=== PATIENT | female | born 1965 | race American Indian/Alaskan Native ===

== ENCOUNTER 2019-11-14 14:40 | Emergency (ER) | payer OTHER, MEDICAID ==
[2019-11-14 15:00] VITALS: BP 133/88
[2019-11-14] MEDS ORDERED: ACETAMINOPHEN 500 MG TAB PO ONE (17:05)
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
== END 2019-11-14 17:53 | disposition home or self-care (01) ==
LOC: ED 14:40
DX: S16.1XXA Strain of muscle, fascia and tendon at neck level, initial encounter (principal); S39.012A Strain of muscle, fascia and tendon of lower back, initial encounter; M62.830 Muscle spasm of back; V89.2XXA Person injured in unspecified motor-vehicle accident, traffic, initial encounter; Y93.89 Activity, other specified; Y92.410 Unspecified street and highway as the place of occurrence of the external cause; Y99.8 Other external cause status
CPT/HCPCS: 99283

== ENCOUNTER 2019-12-20 06:20 | Observation (INO) | payer OTHER, MEDICAID ==
[2019-12-18 11:09] LABS: Basophils # (Auto) 0.1 K/mm3 (0.0-0.1); Eosinophils # (Auto) 0.1 K/mm3 (0.0-0.4); Eosinophils % (Auto) 2.5 % (0.0-4.3); Hematocrit 38.2 % (30.3-42.9); Lymphocytes # (Auto) 2.3 K/mm3 (1.2-5.4); Lymphocytes % (Auto) 37.9 % (13.4-35.0); Mean Corpuscular HGB Conc 34 % (30-34); Mean Corpuscular Volume 90 fl (79-97); Monocytes # (Auto) 0.6 K/mm3 (0.0-0.8); Monocytes % (Auto) 9.4 % (0.0-7.3); Platelet Count 250 K/mm3 (140-440); Red Blood Count 4.23 M/mm3 (3.65-5.03); Red Cell Distribution Width 13.6 % (13.2-15.2)
--- NOTE | 2019-12-18 11:34 | Anesthesia Consultation ---
Anesthesia Consult and Med Hx Date of service: 12/20/19 - Airway Anesthetic Teeth Evaluation: Good ROM Head & Neck: Adequate Mental/Hyoid Distance: Adequate Mallampati Class: Class II Intubation Access Assessment: Probably Good - Pulmonary Exam CTA: Yes - Cardiac Exam Cardiac Exam: RRR - Pre-Operative Health Status ASA Pre-Surgery Classification: ASA2 Proposed Anesthetic Plan: General Nerve Block: TAP - Pulmonary Hx Smoking: Yes (Former) Hx Asthma: Yes (last inhaler use 10yrs ago) Hx Respiratory Symptoms: No - Cardiovascular System Hx Hypertension: Yes Hx Heart Attack/AMI: No Hx Percutaneous Transluminal Coronary Angioplasty (PTCA): No Hx Heart Murmur: Yes (neg cardiac work up) - Central Nervous System CVA: No - Gastrointestinal Hx Gastroesophageal Reflux Disease: Yes (poorly controlled) - Endocrine Hx Renal Disease: No Hx Liver Disease: No Hx Insulin Dependent Diabetes: No Hx Non-Insulin Dependent Diabetes: No Hx Hypothyroidism: Yes - Other Systems Hx Alcohol Use: Yes (double shot of liquor daily) Hx Substance Use: Yes (THC daily) Hx Obesity: No - Additional Comments Anesthesia Medical History Comments: No hx anesthetic complications. TTE 02/2019: EF 55-60%, mild pHTN w/ RSVP 30-35 mmHg.
[2019-12-18 13:38] LABS: BUN/Creatinine Ratio 18; Blood Urea Nitrogen 16 mg/dL (7-17); Calcium 9.3 mg/dL (8.4-10.2); Hemolysis Index 3
[~2019-12-20 06:20] MED LIST: ACETAMINOPHEN 500 MG TAB PO SCH; FAMOTIDINE 20 MG/2 ML INJ IV NR; GABAPENTIN 300 MG CAP PO NR; LACTATED RINGERS 1,000 ML IV SCH; MIDAZOLAM 2 MG/2 ML INJ IV NR; fentaNYL 100 MCG/2 ML INJ IV PRN
[2019-12-20] MEDS ORDERED: BACTERIOSTATIC SODIUM CHLORIDE 0.9% 30 ML VIAL INFILTRATI ONE (06:42)
[2019-12-20] MEDS ORDERED: BUPIVACAINE/PF (0.5%) 5 MG/1 ML 30 ML VIAL INFILTRATI ONE (07:00)
[2019-12-20] MEDS ORDERED: ceFAZolin/Water 2 GM/20 ML 2 GM/20 ML SYRINGE IV NR (07:00)
--- NOTE | 2019-12-20 07:00 | History and Physical Report ---
History of Present Illness Date of examination: 12/19/19 Date of admission: December 20, 2019 Chief complaint: Chronic pelvic pain History of present illness: 54-year-old -0-1-4 with a history of worsening chronic pelvic pain. The patient has attempted medical management without considerable improvement in her symptoms. She is elected to undergo definitive surgical management. Past History Past Medical History: hypertension Past Surgical History: other (tubal ligation) [employer]CH[employer] History: fibroids Social history: single - Obstetrical History : 5 Para: 4 Hx # Term Pregnancies: 4 Number of Pregnancies: 0 Spontaneous Abortions: 0 Induced : 1 Number of Living Children: 4 Medications and Allergies Allergies Allergy/AdvReac Type Severity Reaction Status Date / Time aspirin AdvReac Gastric Verified 12/12/19 16:58 upset morphine AdvReac Gastric Verified 12/12/19 16:58 upset NSAIDS (Non-Steroidal AdvReac GI bleed Verified 12/12/19 16:58 Anti-Inflamma tetracycline AdvReac Gastric Verified 12/12/19 16:58 upset Home Medications Medication Instructions Recorded Confirmed Last Taken Type Levothyroxine [Synthroid] 75 mcg PO QAM 12/12/19 12/12/19 Unknown History Losartan [Cozaar] 100 mg PO QDAY 12/12/19 12/12/19 Unknown History amLODIPine [Norvasc] 10 mg PO DAILY 12/12/19 12/12/19 Unknown History hydroCHLOROthiazide [HCTZ] 25 mg PO QDAY 12/12/19 12/12/19 Unknown History Active Meds: Active Medications Acetaminophen (Tylenol) 1,000 mg PO PREOP TERESA Stop: 12/20/19 23:00 Famotidine (Pepcid) 20 mg IV ONCE NR Stop: 12/20/19 23:00 Fentanyl (Sublimaze) 100 mcg IV ONCE PRN PRN Reason: sedation for nerve block Stop: 12/20/19 20:00 Gabapentin (Gabapentin) 600 mg PO PREOP NR Stop: 12/20/19 23:00 Lactated Ringer's (Lactated Ringers) 1,000 mls @ 100 mls/hr IV DIRECT TERESA Stop: 12/20/19 23:59 Midazolam HCl (Versed) 2 mg IV PREOP NR Stop: 12/20/19 23:00 Review of Systems All systems: negative Genitourinary: pelvic pain - Vital Signs Vital signs: Vital Signs Temp Pulse Resp BP Pulse Ox 98.3 F 66 20 122/73 97 12/18/19 10:45 12/18/19 10:45 12/18/19 10:45 12/18/19 10:45 12/18/19 10:45 Temp Pulse Resp BP Pulse Ox 98.3 F 66 20 122/73 97 12/18/19 10:45 12/18/19 10:45 12/18/19 10:45 12/18/19 10:45 12/18/19 10:45 - Physical Exam Breasts: Positive: deferred, mass Lungs: Positive: Clear to auscultation Abdomen: Positive: normal appearance Results Result Diagrams: 12/18/19 10:50 12/18/19 10:50 All other labs normal. Assessment and Plan - Patient Problems (1) Chronic pelvic pain in female Current Visit: Yes Status: Acute Plan to address problem: Schedule for robotic hysterectomy bilateral salpingo-oophorectomy
[2019-12-20] MEDS ORDERED: NEOMY 40 MG/POLYMYXIN B 200,000 UNITS/ML (GU) AMPULE IR ONE ×2 (07:14→08:45)
[2019-12-20] MEDS ORDERED: ROCURONIUM 50 MG/5 ML INJ IV ONE (07:16)
[2019-12-20] MEDS ORDERED: LIDOCAINE MPF (2%) 20 MG/1 ML VIAL 5 ML ONE (07:16)
[2019-12-20] MEDS ORDERED: fentaNYL 100 MCG/2 ML INJ ONE (07:17)
[2019-12-20] MEDS ORDERED: propofoL 200 MG/20 ML VIAL IV ONE (07:17)
--- NOTE | 2019-12-20 07:17 | Anesthesia Day of Surgery ---
Anesthesia Day of Surgery - Day of Surgery Patient Examined: Yes Patient H&P Reviewed: Yes Patient is NPO: Yes
--- NOTE | 2019-12-20 07:22 | Progress Note ---
Regional Anesthesia Block - Regional Anesthesia Block Start Time: 07:06 Stop Time: 07:15 Performed By:: ANNE HARMON Procedure: Marlon Tap Block with Ultrasound Pt Id, consent, time out; performed. Pt on monitor, VSS stable, sedation given per pre-op RN. Sterile prep and drape. Left side Landmarks Identified with ultrasound. 3cc 1% lido skin wheel. Needle advance in plane, 15cc .5% bupivacaine with 15 m ns injected intimately with negatives aspiration. Right side Landmarks Identified with ultrasound. 3cc 1% lido skin wheel. Needle advance in plane, 15cc .5% bupivacaine with 15 m ns injected intimately with negatives aspiration Pt tolerated procedure will, VSS stable.
[2019-12-20] MEDS ORDERED: SODIUM CHLORIDE 0.9% IRR 1,500 ML BOTTLE IR ONE (08:45)
[2019-12-20] MEDS ORDERED: SODIUM CHLORIDE 0.9% IRRIG SOLN 2000 ML IR ONE (08:45)
[2019-12-20] MEDS ORDERED: NEOSTIGMINE 10MG/10 ML INJ MDV ONE (09:26)
[2019-12-20] MEDS ORDERED: ONDANSETRON 4 MG/2 ML INJ ONE (09:26)
[2019-12-20] MEDS ORDERED: GLYCOPYRROLATE 0.4 MG/2 ML INJ ONE (09:26)
--- NOTE | 2019-12-20 09:26 | Operative Report ---
Operative Report Operative Report: Date of surgery: December 20, 2019 Preoperative diagnoses: Symptomatic uterine fibroids; chronic pelvic pain Postoperative diagnoses: Same as above Procedure: Robotic hysterectomy and bilateral salpingo-oophorectomy Surgeon: Aubrie Mathew M.D. Office Rn: Fransisca Evans Anesthesia: Gen. endotracheal anesthesia Estimated blood loss: 150 mL Pathology: Uterus, cervix, leiomyoma, bilateral tubes and ovaries Indication: 54-year-old -0-1-4 with a history of symptomatic uterine fibroids and chronic pelvic pain. The patient is elected to undergo definitive surgical management Procedure: The patient was taken to the operating room and given general endotracheal anesthesia without complication. She is prepped and draped in a normal sterile fashion. A bivalve speculum was placed in the patient's vagina and a single- tooth tenaculum placed on the anterior lip of the cervix. The uterus was sounded with the uterine sound. A [employer] uterine manipulator was placed in the bivalve speculum was then removed. Attention was then turned to the patient's abdomen where a 12 millimeter supra umbilical skin incision was then made. A Veress needle was placed and peritoneal entry was verified water-filled syringe. Insufflation of the peritoneal cavity was performed with CO2 gas. The 12 mm tr ocar was then placed under direct visualization. An additional 8 mm trocar was placed on the patient's left and right lateral side just opposite of the supraumbilical trocar. An additional 5 mm right lateral trocar was then placed as the accessory port. The Salvatore Terrell device was used to close the fascia of the 12 mm incision. The patient was then placed in steep Trendelenburg. The da Tesha robot was then engaged. A fenestrated forcep was placed in arm 2 and a vessel sealer was placed in arm 1. General survey of the abdomen pelvis revealed a markedly enlarged fibroid uterus with multiple leiomyomas. The tubes and ovaries were normal in appearance. The surgeon then transferred to the surgical console. The infundibulopelvic ligament was then isolated on the right. The vessel sealer was used to coagulate the ligament which was then transected. The tube and ovary were transected from the supply. The round ligament was then coagulated and transected also. The vesicouterine peritoneum was then entered from the patient's right side. The uterine vessels were then coagulated with the vessel sealer. The vessels were then transected . Attention was then turned to the patient's left side where the infundibulopelvic ligament and mesosalpinx were again isolated coagulated and transected. The vesical peritoneum was then entered from the left and joined in the midline. P eritoneum was reflected off of the lower uterine segment. Uterine vessels were then coagulated and then transected. The blood supply to the uterus was adequately contained, a posterior colpotomy was made. The V care ring was visualized. Posterior colpotomy was created with the monopolar scissors. The incision was continued circumferentially until anterior colpotomy was made. The cervix and uterus were amputated from the vaginal cuff. The uterus is bivalved and the leiomyoma was removed in order to facilitate delivery through the vagina. The uterus was then removed along with the tubes and ovaries bilaterally through the vagina and a warm laparotomy sponge was placed and maintain the pneumoperitoneum. The vaginal cuff was then closed in a running fashion with V lock suture. Irrigation of the pelvis was performed. with hemoblast was applied to the incision. The skin was then reapproximated with 4-0 Monocryl. The tissue was sent to pathology which included the cervix, uterus, leiomyomas, tubes and ovaries. The patient was then successfully extubated. She was then taken to the recovery room in stable condition. All sponge laps and needle counts were correct x2.
[2019-12-20] MEDS ORDERED: ONDANSETRON 4 MG/2 ML INJ IV PRN (09:27)
[2019-12-20] MEDS ORDERED: oxyCODONE /ACETAMINOPHEN 5-325MG TAB PO PRN (09:27)
[2019-12-20] MEDS ORDERED: ACETAMINOPHEN 325 MG TAB PO PRN (09:27)
[2019-12-20] MEDS ORDERED: HYDROmorphone 2 MG/1 ML INJ IV PRN (09:27)
[2019-12-20] MEDS ORDERED: HYDROmorphone 1 MG/1 ML INJ ONE ×2 (10:00→10:27)
[2019-12-20] MEDS ORDERED: D5W/LACTATED RINGERS 1,000 ML IV SCH (10:00)
[2019-12-20] MEDS: HYDROmorphone 1 MG/1 ML INJ IV PRN ×3 (10:02→10:30)
[2019-12-20] MEDS ORDERED: LACTATED RINGERS 1,000 ML ONE (10:16)
--- NOTE | 2019-12-20 14:42 | Post Anesthesia Evaluation ---
- Post Anesthesia Evaluation Patient Participated: Yes Airway Patent: Yes Stable Respiratory Function: Yes Nausea/Vomiting: No Temp > 96.8F: Yes Pain Manageable: Yes Adequeate Hydration: Yes Anesthesia Complications: No
[2019-12-20 15:11] VITALS: BP 127/79
[2019-12-20] MEDS ORDERED: SIMETHICONE 80 MG CHEW TAB PO PRN (17:32)
== END 2019-12-20 18:37 | disposition home or self-care (01) ==
LOC: OR 06:20 → OB 09:27
PROVIDERS: ADMIT Obstetrics & Gynecology; ATTEND Obstetrics & Gynecology
DX: R10.2 Pelvic and perineal pain (principal); Z20.828 Contact with and (suspected) exposure to other viral communicable diseases; I10 Essential (primary) hypertension; D25.9 Leiomyoma of uterus, unspecified; Z98.51 Tubal ligation status
CPT/HCPCS: 36415; 58573; 64450; 80048; 84703; 85025; 86850; 86900; 86901; 88307; 96361; 96374; A4217; G0378; J0690; J1170; J2250; J2405; J2704; J2710; J3010; J7120; S2900; U0003; 88309